=== PATIENT | female | born 1940 | race Caucasian/White ===

== ENCOUNTER → 2018-04-19 08:44 | Outpatient (CLI) | payer MEDICARE | END | disposition home or self-care (01) | LOC: D.CT 08:30 | DX: R93.8 Abnormal findings on diagnostic imaging of other specified body structures (principal) ==

== ENCOUNTER → 2018-05-08 09:29 | Outpatient (CLI) | payer MEDICARE ==
--- NOTE | ~2018-05-08 | EC ---
PATIENT:YANET GARCIA DATE OF SERVICE: 05/08/18 SEX: F MEDICAL RECORD: [id number] DATE OF : 42 LOCATION:[facility] AGE OF PATIENT: 77 ADMISSION DATE: 05/08/18 REFERRING PHYSICIAN: INTERPRETING PHYSICIAN: CHRISTINA AC MD ECHOCARDIOGRAM REPORT ECHO CHARGES Date: CLINICAL DIAGNOSIS: ECHOCARDIOGRAPHIC MEASUREMENTS (adult normal given) AC root (d.<3.7cm) cm LV Septum d (<1.2 cm> cm Valve Excursion cm LV Septum (systole) cm Left Atria (s.<4.0cm> cm LVPW d(<1.2cm) cm RV (d.<2.3cm) cm LVPW (sytole) cm LV diastole(<5.6CM) cm MV E-F(>70mm/sec) cm LV systole cm LVOT Diameter cm MV exc.(>10mm) cm Est.ejection fraction (50-75%) % DOPPLER: LVIT cm/sec A cm/sec E cm/sec LA cm/sec RVSP mmHg LVOT cm/sec AOP1/2T m/s Asc. Ao cm/sec RVOT cm/sec RA cm/sec PA cm/sec AV Gradient Peak mmHg AV Mean mmHg AV Area cm MV Gradient Peak mmHg MV Mean mmHg MV Area cm COMMENTS: Linux System Admin: Order Entry Technician: ARLYN# Pericardial Effusion DATE OF SERVICE: 05/08/2018 DATE OF SERVICE: 05/08/2018 FINDINGS: 1. Left ventricular chamber size is within normal limits. Left ventricular systolic function is normal. Overall ejection fraction is estimated at 55%. 2. Left atrium, right atrium, and right ventricle chamber sizes are within normal limits. 3. Valvular structures have normal structure and motion. ECHOCARDIOGRAM REPORT [id number] YANET GARCIA 4. Doppler interrogation reveals trace mitral regurgitation, trace tricuspid regurgitation, no other valvular insufficiency or stenosis. Pulmonary systolic pressure is estimated at 26 mmHg. 5. No evidence of pericardial effusion or left ventricular thrombus. 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
== END | disposition home or self-care (01) ==
LOC: D.ECHO 05-01 09:30
DX: R60.9 Edema, unspecified (principal); D75.1 Secondary polycythemia; I10 Essential (primary) hypertension

== ENCOUNTER → 2018-05-16 12:38 | Outpatient (CLI) | payer MEDICARE | END | disposition home or self-care (01) | LOC: D.US 12:38 | DX: R60.0 Localized edema (principal); M79.605 Pain in left leg; M79.604 Pain in right leg ==

== ENCOUNTER → 2018-07-12 16:45 | Outpatient (CLI) | payer MEDICARE, OTHER | END | disposition home or self-care (01) | LOC: D.CT 16:45 | DX: R60.0 Localized edema (principal) ==